=== PATIENT | male | born 1940 | race Caucasian/White ===

== ENCOUNTER → 2016-10-09 | Outpatient (REF) ==
[~2016-10-09] MED LIST: ASPIRIN E.C. 8181 MG PO; B COMPLEX1 TA2 PO; DULCOLAX10 MG RC; LOVENOX 4040 MG/0.4 SQ; MILK OF MAGNESI30 ML PO; NIACIN500 M3 PO; NORCO 325 MG-51 TAB PO; OSCAL 500 TAB500 MG PO; PROSCAR 5MG5 MG PO; ROXICODONE 55 MG/TAB PO; SENOKOT S 50 MG1 TAB PO; SUPER EPA W/BO400 MG PO; THERAGRAN1 TA1 PO; VITAMIN C500 MG PO; ZOCOR 20MG20 MG PO
== END ==
LOC: ZLAB.WCH 08:56
DX: Z01.89 Encounter for other specified special examinations (principal)

== ENCOUNTER 2020-07-20 03:56 | Emergency (ER) | payer MEDICARE ==
[~2020-07-20] VITALS: Ht 195.6 cm; Wt 109.1 kg
[~2020-07-20 03:56] MED LIST changes: +BALANCE B-501 TA1 PO; +TAMBOCOR50 MG PO; +TOPROL XL 50MG50 MG PO; +XARELTO20 MG PO
[2020-07-20 04:02] VITALS: TEMP 98.5
[2020-07-20 04:21] LABS: BASO % 0.3 % (0.0-2.0); EOS # 0.1 (0.0-0.7); EOS % 1.6 % (0-4.0); GRAN # 5.3 (1.4-6.5); GRAN % 72.9 % (42.2-75.2); HEMATOCRIT 39.8 % (42.0-52.0); HEMOGLOBIN 13.7 g/dl (13.5-18.0); LYMPH % 14.1 % (20.0-51.0); MEAN CELL VOLUME 92 fl (80.0-100.0); MEAN CORPUSCULAR HEMOGLOBIN 32 pg (27.0-31.0); MEAN CORPUSCULAR HGB CONC 34 g/dl (33.0-37.0); MEAN PLATELET VOLUME 8.9 fl (7.4-10.4); MONO # 0.8 (0.1-0.6); MONO % 10.7 % (1.7-9.3); PLATELET COUNT 179 K/mm3 (130-400); RED BLOOD COUNT 4.32 M/mm3 (4.20-5.60); REDCELL DISTRIBUTION WIDTH-CV 12.3 % (11.5-14.5)
[2020-07-20 04:31] LABS: ALANINE AMINOTRANSFERASE 18 U/L (4-49); ALBUMIN 3.9 gm/dL (3.5-5.0); ALKALINE PHOSPHATASE 74 U/L (50-136); ANION GAP 8 mmol/L (7-16); AST,SGOT 30 U/L (15-37); BILIRUBIN,TOTAL 0.6 mg/dL (0.0-1.0); BLOOD UREA NITROGEN 21 mg/dL (9-20); CARBON DIOXIDE 26 mmol/L (22-30); CHLORIDE 99 mmol/L (98-107); CREATININE, serum 0.77 (0.66-1.25); GLUCOSE 105 mg/dL (74-106); LIPASE 33 U/L (23-300); POTASSIUM 4.2 mmol/L (3.4-5.0); SODIUM 133 mmol/L (137-145); TOTAL PROTEIN 6.9 gm/dL (6.4-8.2)
[2020-07-20 04:35] LABS: INR 1.7 (0.8-3.0); PROTHROMBIN TIME 18.7 SECONDS (9.7-12.8)
[2020-07-20 04:37] LABS: PARTIAL THROMBOPLASTIN TIME 36.8 SECONDS (26.0-37.0)
[2020-07-20 04:44] LABS: TROPONIN-I < 0.012 ng/mL (0.000-0.035)
[2020-07-20] MEDS ORDERED: MEGARED ADVANC1 EAC1 PO (04:57)
[2020-07-20 12:29] VITALS: BP 160/89; PULSE 70
== END 2020-07-20 12:20 | disposition short-term general hospital (02) ==
LOC: COL.ER 03:56
PROVIDERS: Emergency Medicine
DX: S22.010A Wedge compression fracture of first thoracic vertebra, initial encounter for closed fracture (principal); E87.1 Hypo-osmolality and hyponatremia; S00.01XA Abrasion of scalp, initial encounter; I48.91 Unspecified atrial fibrillation; E78.5 Hyperlipidemia, unspecified; Z20.822 Contact with and (suspected) exposure to COVID-19; Z79.01 Long term (current) use of anticoagulants; Z98.890 Other specified postprocedural states; W14.XXXA Fall from tree, initial encounter; Y92.009 Unspecified place in unspecified non-institutional (private) residence as the place of occurrence of the external cause
CPT/HCPCS: J2270

== ENCOUNTER 2020-09-11 18:30 | Emergency (ER) | payer MEDICARE ==
[~2020-09-11] VITALS: Ht 195.6 cm; Wt 104.5 kg
[~2020-09-11 18:30] MED LIST changes: +MEGARED ADVANC1 EAC1 PO
[2020-09-11 18:32] VITALS: TEMP 98.7
[2020-09-11 18:48] LABS: BASO % 0.3 % (0.0-2.0); EOS % 0.3 % (0-4.0); GRAN # 1.9 (1.4-6.5); HEMATOCRIT 41.3 % (42.0-52.0); HEMOGLOBIN 14.1 g/dl (13.5-18.0); LYMPH # 1.2 (1.2-3.4); LYMPH % 31.2 % (20.0-51.0); MEAN CELL VOLUME 92 fl (80.0-100.0); MEAN CORPUSCULAR HEMOGLOBIN 32 pg (27.0-31.0); MEAN CORPUSCULAR HGB CONC 34 g/dl (33.0-37.0); MEAN PLATELET VOLUME 9.5 fl (7.4-10.4); MONO # 0.7 (0.1-0.6); MONO % 17.7 % (1.7-9.3); PLATELET COUNT 186 K/mm3 (130-400); RED BLOOD COUNT 4.47 M/mm3 (4.20-5.60); REDCELL DISTRIBUTION WIDTH-CV 12.6 % (11.5-14.5)
[2020-09-11 18:55] LABS: INR 1.3 (0.8-3.0)
[2020-09-11 18:58] LABS: ALANINE AMINOTRANSFERASE 24 U/L (4-49); ALBUMIN 4.2 gm/dL (3.5-5.0); ALKALINE PHOSPHATASE 75 U/L (50-136); ANION GAP 6 mmol/L (7-16); AST,SGOT 41 U/L (15-37); BILIRUBIN,TOTAL 0.4 mg/dL (0.0-1.0); BLOOD UREA NITROGEN 17 mg/dL (9-20); CALCIUM 8.8 mg/dL (8.4-10.2); CARBON DIOXIDE 28 mmol/L (22-30); CHLORIDE 91 mmol/L (98-107); CREATININE, serum 0.83 (0.66-1.25); GLUCOSE 128 mg/dL (74-106); POTASSIUM 4.1 mmol/L (3.4-5.0); SODIUM 125 mmol/L (137-145); TOTAL PROTEIN 7.2 gm/dL (6.4-8.2)
[2020-09-11 19:11] LABS: TROPONIN-I < 0.012 ng/mL (0.000-0.035)
[2020-09-11 19:48] LABS: MUCOUS Present /lpf; PH 7 (5-8); SQUAMOUS EPITHELIAL None Seen /hpf; URINE APPEARANCE Clear; URINE BACTERIA None Seen /hpf; URINE BILIRUBIN Negative (NEGATIVE); URINE BLOOD Negative (NEGATIVE); URINE COLOR Yellow; URINE GLUCOSE Negative (NEGATIVE); URINE KETONE 1+ (NEGATIVE); URINE LEUKOCYTE ESTERASE Negative (NEGATIVE); URINE NITRATE Negative (NEGATIVE); URINE PROTEIN(semi-quant) Negative (NEGATIVE); URINE RBC 0-2 /hpf; URINE UROBILINOGEN Negative (NEGATIVE); URINE WBC 0-2 /hpf
[2020-09-11 20:44] LABS: COLLECTION METHOD CLEAN CATCH
[2020-09-11 22:22] LABS: POTASSIUM 4.5 mmol/L (3.4-5.0)
[2020-09-11 22:23] LABS: CALCIUM 8.2 mg/dL (8.4-10.2); CREATININE, serum 0.67 (0.66-1.25)
[2020-09-12 03:35] VITALS: BP 130/80; PULSE 65
== END 2020-09-12 03:35 | disposition home or self-care (01) ==
LOC: COL.ER 18:30
PROVIDERS: Emergency Medicine; Nurse Practitioner Primary Care
DX: I62.03 Nontraumatic chronic subdural hemorrhage (principal); G40.209 Localization-related (focal) (partial) symptomatic epilepsy and epileptic syndromes with complex partial seizures, not intractable, without status epilepticus; E87.1 Hypo-osmolality and hyponatremia; E22.2 Syndrome of inappropriate secretion of antidiuretic hormone; I48.91 Unspecified atrial fibrillation; I10 Essential (primary) hypertension; E78.5 Hyperlipidemia, unspecified; Z79.01 Long term (current) use of anticoagulants
CPT/HCPCS: J7030; Q9967

== ENCOUNTER 2023-11-03 05:18 | Day surgery (SDC) | payer MEDICARE ==
[~2023-11-03] VITALS: Ht 195.6 cm; Wt 98.2 kg
[2023-11-03] VITALS (12 sets, daily range): BP systolic 118–145; BP diastolic 68–89; PULSE 65–94; TEMP 97.4–98.1
[~2023-11-03 05:18] MED LIST changes: +Acetaminophen 500 MG TAB PREOP X1 PO SCH; +Celecoxib 400 MG PREOP X1 PO SCH; +DOXYCYCLINE 10100 MG PO; +GABAPENTIN 300 MG PO SCH; +NS 1,000 ML IV SCH
[2023-11-03] MEDS ORDERED: VITAMIN D31000 IU PO (06:52)
[2023-11-03] MEDS ORDERED: OSCAL 500 TAB500 MG PO (06:56)
[2023-11-03] MEDS ORDERED: B COMPLEX #11 TA1 PO (06:57)
[2023-11-03] MEDS ORDERED: TOPROL XL 25MG25 MG PO (06:57)
[2023-11-03] MEDS ORDERED: VITAMIN FLUSH-F1 CAP PO (06:58)
[2023-11-03] MEDS ORDERED: PROSCAR 5MG5 MG PO (06:58)
[2023-11-03] MEDS ORDERED: ZYRTEC 10MG10 MG PO (06:59)
[2023-11-03] MEDS ORDERED: ZOCOR 20MG20 MG PO (07:01)
[2023-11-03] MEDS ORDERED: IRON TABLETS325 MG PO (07:03)
[2023-11-03] MEDS ORDERED: VITAMIN C500 MG PO (07:03)
[2023-11-03] MEDS ORDERED: FOLIC ACID 40400 MCG PO (07:04)
[2023-11-03 07:11] LABS: CALCIUM 9.1 mg/dL (8.4-10.2); CREATININE, serum 0.81 mg/dL (0.72-1.25); POTASSIUM 4.2 mEq/L (3.5-4.5)
[2023-11-03] MEDS ORDERED: Tranexamic Acid 1,000 MG/10 ML VIAL ONE (07:20)
[2023-11-03] MEDS ORDERED: Ondansetron 4 MG/2 ML VIAL ONE (07:20)
[2023-11-03] MEDS ORDERED: Midazolam 2 MG/2 ML VIAL ONE (07:20)
[2023-11-03] MEDS ORDERED: Topical Skin Adhesive 1 EACH (1 ML) TOP ONE (07:54)
[2023-11-03] MEDS ORDERED: Phenylephrine 10 MG/ML VIAL ONE (08:11)
[2023-11-03] MEDS ORDERED: NS 100 ML IV ONE (08:11)
[2023-11-03] MEDS ORDERED: hydrALAZINE 20 MG/ML 1 ML VIAL IV PRN (09:15)
[2023-11-03] MEDS ORDERED: traMADol 50 MG TAB PO PRN (09:15)
[2023-11-03] MEDS ORDERED: Acetaminophen 500 MG TAB PO PRN (09:15)
[2023-11-03] MEDS ORDERED: Morphine 4 MG/ML VIAL IV PRN (09:15)
[2023-11-03] MEDS ORDERED: Magnes Hydrox (MOM) 80 MG/ML 30 ML CUP PO PRN (09:15)
[2023-11-03] MEDS ORDERED: NS 1,000 ML IV SCH (09:15)
[2023-11-03] MEDS ORDERED: fentaNYL 50 MCG/ML 1 ML SYRINGE/VIAL [PACU/SDC ONLY] IV PRN (09:15)
[2023-11-03] MEDS ORDERED: Ondansetron 4 MG/2 ML VIAL IV PRN ×2 (09:15)
[2023-11-03] MEDS ORDERED: Naloxone 0.4 MG/ML VIAL IV PRN (09:15)
[2023-11-03] MEDS ORDERED: oxyCODONE 5 MG TAB PO PRN (09:15)
--- NOTE | 2023-11-03 10:00 | NUR ---
Pt up to floor at this time with no pain, family at bedside, A/O x4, aquacell and ice pack to right knee incision. pulses +2, edema +1 pitting. Pt tolerating deit well, no needs at this time, will continue to monitor.
[2023-11-03] MEDS ORDERED: Acetaminophen 500 MG TAB PO SCH (10:06)
[2023-11-03] MEDS ORDERED: Ferrous Sulfate 325 MG TAB PO SCH (14:00)
[2023-11-03] MEDS ORDERED: ceFAZolin 2 G in Water For Injection,Sterile 20 ML IV SCH (15:20)
--- NOTE | 2023-11-03 16:02 | NUR ---
Pt encouraged to void at this time. Pt unable to void, pt ambulating halls. Bladder scan shows greater than 650 ml in bladder. Will follow straight cath orders.
--- NOTE | 2023-11-03 17:04 | NUR ---
Straight cath completed and 750ml urine removed. Pt tolerated well. Will continue to encourage voiding throughout shift.
[2023-11-03] MEDS ORDERED: Cholecalciferol (Vit D3) 1000 Units TAB PO SCH (18:00)
--- NOTE | 2023-11-03 20:00 | NUR ---
SHIFT ASSESSMENT COMPLETE. VSS. PATIENT RESTING IN BED WATCHING TV. ALL NIGHT MEDS GIVEN ORDERED. PATIENT REPORTS PAIN 2/10, REQUEST NO ADDITIONAL PAIN MEDS AT THIS TIME. PATIENT HAS NO REQUEST OR COMPAINTS. CALL LIGHT IN REACH
[2023-11-03] MEDS ORDERED: Calcium Carbonate 500 MG TAB PO SCH (21:00)
[2023-11-03] MEDS ORDERED: Celecoxib 200 MG CAP PO SCH (21:00)
[2023-11-03] MEDS ORDERED: Ascorbic Acid 500 MG TAB PO SCH (21:00)
[2023-11-03] MEDS ORDERED: Atorvastatin 10 MG TAB PO SCH (21:00)
[2023-11-03] MEDS ORDERED: Sennosides/Docusate 8.6-50 MG TAB PO SCH (21:00)
[2023-11-03] MEDS ORDERED: Simvastatin 20 MG **** subs to Atorvastatin 10 MG PO SCH (21:00)
[2023-11-04] VITALS (7 sets, daily range): BP systolic 123–137; BP diastolic 71–89; PULSE 86–105; TEMP 97.5–97.9
[2023-11-04 06:12] LABS: HEMATOCRIT 37.2 % (42.0-52.0); HEMOGLOBIN 12.6 g/dl (13.5-18.0)
--- NOTE | 2023-11-04 07:50 | NUR ---
Pt resting in bed with no pain at this time. Pt a/o x4, tolerating deit well, voiding in urinal with good output, and steady gait to bathroom with walker and SBA. No needs at this time, awaiting therapy prior to discharge. Will continue to monitor.
[2023-11-04] MEDS ORDERED: Folic Acid 1 MG TAB PO SCH (09:00)
[2023-11-04] MEDS ORDERED: Finasteride 5 MG TAB PO SCH (09:00)
[2023-11-04] MEDS ORDERED: Cetirizine 10 MG TAB PO SCH (09:00)
--- NOTE | 2023-11-04 09:17 | NUR ---
Social work student met with patient to discuss discharge planning. Patient lives outside of [place] with his Hailey (ph# [phone]) and sees Bonnie Bruce for primary care. Patient gets medications from [facility] with no difficulties and has [employer] coverage for insurance. Patient has walker he will start to use post surgery. Patient is normally independent with ADLS and driving. Patient has [employer] which designates Hailey. Patient has outpatient PT scheduled on 11/04 at 830 at [facility]. Patient plans to return home at time of discharge. Discharge plan: Home with outpatient PT
[2023-11-04] MEDS ORDERED: ASPI325T6 PO (10:40)
[2023-11-04] MEDS ORDERED: ROXICODONE 55 MG/TAB PO (10:41)
[2023-11-04] MEDS ORDERED: ULTRAM 50MG TAB50 MG PO (10:42)
[2023-11-04] MEDS ORDERED: SENOKOT S 50 MG1 TAB PO (10:43)
--- NOTE | 2023-11-04 11:05 | NUR ---
Social work student faxed discharge orders to [facility] for outpatient PT. Discharge plan: Home with outpatient PT
--- NOTE | 2023-11-04 11:30 | NUR ---
Discharge instructions provided to pt and . Discussed follow up appointments, new medications, and signs of infecton. No questions at this time, IV removed, pt and belongings escorted out of building via wheelchair.
== END 2023-11-04 11:30 | disposition home or self-care (01) ==
LOC: SDCO 05:18 → SURG 10:00 → SDCO 11-04 11:30
PROVIDERS: Orthopaedic Surgery; Registered Nurse
DX: M17.11 Unilateral primary osteoarthritis, right knee (principal); Z79.82 Long term (current) use of aspirin
CPT/HCPCS: OP; A9284; C1713; C1776; J0690; J2250; J2371; J2405; J2704; J7030